=== PATIENT | female | born 1960 | race Two or more races ===

== ENCOUNTER → 2021-03-24 | Outpatient (CLI) | payer SELFPAY ==
[~2021-03-24] MED LIST: BAMLANIVIMAB (EUA) 700 MG, ETESEVIMAB (EUA) 1,400 MG in SODIUM CHLORIDE 0.9% 50 ML IVPB NR; SODIUM CHLORIDE 0.9% 50 ML IVPB ONE; SODIUM CHLORIDE 0.9% 500 ML 500 ML in EMPTY BAG 1 BAG IV PRN
[2021-03-24 12:07] VITALS: RESP 16
[2021-03-24 12:26] VITALS: BP 110/67; PULSE 50; TEMP 97.7
== END ==
LOC: PROCWHC3 10:22
DX: U07.1 COVID-19 (principal); E66.9 Obesity, unspecified; Z88.5 Allergy status to narcotic agent
CPT/HCPCS: 96360; J3490; M0245

== ENCOUNTER → 2021-08-19 | Outpatient (CLI) | payer BC ==
--- NOTE | 2021-08-20 05:57 | MR ---
EXAMINATION TYPE: MR iac wo/w con DATE OF EXAM: 08/19/2021 COMPARISON: None HISTORY: Hearing loss left ear, vertigo CONTRAST: Standard multiplanar, multisequence MRI departmental protocol images were obtained without contrast a nd with 14 mL intravenous Gadavist gadolinium contrast. Ventricles have normal size. There is no mass effect or midline shift. There is no sign of intracrani al hemorrhage. Diffusion images show no evidence of acute infarct. On the T2 and FLAIR images there i s some subtle increased signal within the central andres that measures 7 mm. The cerebellum is intact. There is 6 mm rounded area of increased signal on the contrast images at th e anterior aspect of the right internal auditory canal at the cerebellopontine angle. It is not clear if this is enhancement. No precontrast T1 images were obtained. The acoustic nerve and vestibular ne rve appear normal. The remainder of the exam is unremarkable. IMPRESSION: Extra-axial mass at the right internal auditory canal could be a meningioma. No evidence of a schwann talita. Subtle increased signal in the central andres could relate to microvascular ischemia or demyelinating d isease.
== END | disposition home or self-care (01) ==
LOC: RADMRIMAIN 13:07
PROVIDERS: ATTEND Otolaryngology
DX: H93.8X1 Other specified disorders of right ear (principal); R90.89 Other abnormal findings on diagnostic imaging of central nervous system
CPT/HCPCS: 70553; A9585

== ENCOUNTER → 2024-07-02 | Outpatient (CLI) | payer BC ==
[2024-07-02 15:40] LABS: % Iron Saturation 27.97 (12.00-45.00); ALT 55 U/L (8-44); AST 31 U/L (13-35); Albumin 4.5 g/dL (3.8-4.9); Albumin/Globulin Ratio 1.61 Ratio (1.60-3.17); Alkaline Phosphatase 110 U/L (41-126); BUN/Creat Ratio 15.25 Ratio (12.00-20.00); Blood Urea Nitrogen 12.2 mg/dL (9.0-27.0); Calcium 10.4 mg/dL (8.7-10.3); Carbon Dioxide 28.3 mmol/L (21.6-31.8); Chloride 107 mmol/L (96-109); Chol/HDL Ratio 2.34 Ratio; Globulin 2.8 g/dL (1.6-3.3); Glucose 88 mg/dL (70-110); Iron 99 UG/DL (50-170); LDL Cholesterol,Calculated 77.2 mg/dL (0.0-131.0); Potassium 5.1 mmol/L (3.5-5.5); Sodium 146 mmol/L (135-145); Total Bilirubin 0.5 mg/dL (0.3-1.2); Total Iron Binding Capacity 354 UG/DL (228-460); Total Protein 7.3 g/dL (6.2-8.2); Uric Acid 5.1 mg/dL (2.9-7.7); VLDL Calculation 19.66 mg/dL (5.00-40.00)
[2024-07-02 15:48] LABS: Basophils % (A) 1.6 %; Eosinophils # (A) 0.11 X 10*3/uL (0.04-0.35); Eosinophils % (A) 1.7 %; HCT 47.3 % (37.2-46.3); Lymphocytes # (A) 2.06 X 10*3/uL (0.90-5.00); Lymphocytes % (A) 32.6 %; MCH 30.5 pg (27.0-32.0); MCHC 31.7 g/dL (32.0-37.0); MCV 96.3 FL (80.0-97.0); Monocytes # (A) 0.49 X 10*3/uL (0.20-1.00); Monocytes % (A) 7.8 %; NRBC Per 100 WBC 0 X 10*3/uL (0.00-0.01); Neutrophils # (A) 3.53 X 10*3/uL (1.80-7.70); Platelet Count 323 X 10*3/uL (140-440); RBC 4.91 X 10*6/uL (4.10-5.20); RDW 14.6 % (11.5-14.5); WBC 6.31 X 10*3/uL (4.50-10.00)
== END | disposition home or self-care (01) ==
LOC: LABWHC1 08:21
PROVIDERS: ATTEND Family Medicine
DX: I10 Essential (primary) hypertension (principal); E78.49 Other hyperlipidemia; E79.0 Hyperuricemia without signs of inflammatory arthritis and tophaceous disease; E55.9 Vitamin D deficiency, unspecified; R73.03 Prediabetes; Z98.84 Bariatric surgery status
CPT/HCPCS: 36415; 80053; 80061; 82306; 82607; 82728; 82746; 83036; 83540; 83550; 84443; 84550; 85025